=== PATIENT | male | born 1985 ===

== ENCOUNTER 2020-08-09 20:25 | Emergency (ER) | payer BC, OTHER ==
--- NOTE | 2020-08-09 20:53 | EDM.PDOC ---
ED HPI GENERAL MEDICAL PROBLEM - General Chief Complaint: Respiratory Problem Stated Complaint: TROUBLE BREATHING, UNABLE TO SWALLOW Time Seen by Provider: 08/09/20 20:33 Source of Information: Reports: Patient History Limitations: Reports: No Limitations - History of Present Illness INITIAL COMMENTS - FREE TEXT/NARRATIVE: 34M no PMHx presents w/ difficulty swallowing after a choking episode. Patient notes that a few days ago he had really bad GERD/heart burn which is unusual for him. [place] better the last few days. Brianna was eating hibachi noodles and beef when he had a choking episode followed by vomiting. Afterwards was unable to tolerate PO liquids without spitting up "stomach acid". Just [employer] SUPERVIS[employer] patient felt great relief of symptoms and currently feels ok, states he wouldn't have come if he had felt this way at home. No h/o similar, never had endoscopy, no known FHx of esophageal motility or structural disorders. - Related Data Allergies Allergy/AdvReac Type Severity Reaction Status Date / Time No Known Allergies Allergy Verified 08/09/20 20:27 Home Meds: Home Meds Ibuprofen 800 mg PO ASDIRECTED 08/09/20 [History] Past Medical History HEENT History: Reports: None Cardiovascular History: Reports: None Respiratory History: Reports: None Genitourinary History: Reports: None Musculoskeletal History: Reports: None Neurological History: Reports: None Psychiatric History: Reports: None Endocrine/Metabolic History: Reports: None Hematologic History: Reports: None Immunologic History: Reports: None Oncologic (Cancer) History: Reports: None Dermatologic History: Reports: None - Infectious Disease History Infectious Disease History: Reports: Chicken Pox - Past Surgical History Head Surgeries/Procedures: Reports: None GI Surgical History: Reports: Appendectomy Social & Family History - Family History Family Medical History: Noncontributory - Tobacco Use Smoking Status *Q: Former Smoker Used Tobacco, but Quit: Yes Month/Year Tobacco Last Used: 11/11 - Recreational Drug Use Recreational Drug Use: No ED ROS GENERAL - Review of Systems Review Of Systems: Comprehensive ROS is negative, except as noted in HPI. ED EXAM, GENERAL - Physical Exam Exam: See Below Exam Limited By: No Limitations General Appearance: Alert, WD/WN, No Apparent Distress Ears: Normal External Exam Nose: Normal Inspection Throat/Mouth: Normal Inspection, Normal Voice, No Airway Compromise Head: Atraumatic, Normocephalic Neck: Normal Inspection Respiratory/Chest: No Respiratory Distress, Lungs Clear, Normal Breath Sounds, No Accessory Muscle Use Cardiovascular: Normal Peripheral Pulses, Regular Rate, Rhythm GI/Abdominal: Soft, Non-Tender Extremities: Normal Inspection Neurological: Alert Psychiatric: Normal Affect, Normal Mood Skin Exam: Warm, Dry, Intact, Normal Color, No Rash Course - Vital Signs Last Recorded V/S: Last Vital Signs Temp 96.9 F 08/09/20 20:28 Pulse 75 08/09/20 20:28 Resp 20 08/09/20 20:28 BP 150/103 H 08/09/20 20:28 Pulse Ox 95 08/09/20 20:28 - Re-Assessments/Exams Free Text/Narrative Re-Assessment/Exam: 08/09/20 20:52 Will give carbonated beverage and reassess; if patient develops symptoms again, will get labs and trial medications. 08/09/20 21:28 Patient tolerates PO, perhaps had a food bolus that passed on its own. Will d/c with GI/gen surg f/u for endoscopy for further workup Departure - Departure Time of Disposition: 21:26 Disposition: Home, Self-Care 01 Condition: Good Clinical Impression: Esophageal abnormality - Discharge Information Instructions: Upper Endoscopy, Adult Referrals: PCP,None [Primary Care Provider] - Forms: ED Department Discharge Additional Instructions: The following information is given to patients seen in the emergency department who are being discharged to home. This information is to outline your options for follow-up care. We provide all patients seen in our emergency department with a follow-up referral. The need for follow-up, as well as the timing and circumstances, are variable depending upon the specifics of your emergency department visit. If you don't have a primary care physician on staff, we will provide you with a referral. We always advise you to contact your personal physician following an emergency department visit to inform them of the circumstance of the visit and for follow-up with them and/or the need for any referrals to a consulting specialist. The emergency department will also refer you to a specialist when appropriate. This referral assures that you have the opportunity for follow-up care with a specialist. All of these measure are taken in an effort to provide you with optimal care, which includes your follow-up. Under all circumstances we always encourage you to contact your private physician who remains a resource for coordinating your care. When calling for follow-up care, please make the office aware that this follow-up is from your recent emergency room visit. If for any reason you are refused follow-up, please contact the [facility] Department at and asked to speak to the emergency department charge nurse. Please follow up with your primary care physician. If you do not have a primary care physician, see below: [facility] [address] [place] [id number] [facility] [address] [place] [address] You should follow up with a GI physician or surgeon to get an endoscopy; this will help figure out exactly what is going on: [facility] [address] [place] [address], [address] [place] [address] [address] Sepsis Event Note (ED) - Evaluation Sepsis Screening Result: No Definite Risk - Focused Exam Vital Signs: Vital Signs Temp Pulse Resp BP Pulse Ox 08/09/20 20:28 96.9 F 75 20 150/103 H 95
== END 2020-08-09 21:45 | disposition home or self-care (01) ==
LOC: MW.ED 20:25
DX: T18.128A Food in esophagus causing other injury, initial encounter (principal); Z87.891 Personal history of nicotine dependence
CPT/HCPCS: 99282; 99283

== ENCOUNTER 2020-08-16 08:24 | Day surgery (SDC) | payer BC ==
[~2020-08-16 08:24] MED LIST: Ketamine 500 mg/10 ML MDV ONE; Lactated Ringers 1,000 ML IV SCH; Lidocaine 2% 5 ML SDV ONE; Midazolam 1 MG/ML 2 ML SDV ONE; Propofol 200 MG/20 ML SDV ONE; fentaNYL 100 MCG/2 ML SDV ONE
--- NOTE | 2020-08-16 09:31 | PCM.PREANE ---
Preanesthetic Assessment - Anesthesia/Transfusion/Family Hx Anesthesia History: Prior Anesthesia Without Reaction Family History of Anesthesia Reaction: No Transfusion History: No Prior Transfusion(s) - Review of Systems General: No Symptoms Pulmonary: No Symptoms Cardiovascular: No Symptoms Neurological: No Symptoms Other: Reports: None - Physical Assessment NPO Status Date: 08/15/20 Height: 5 ft 11 in Weight: 115.212 kg ASA Class: 2 Mental Status: Alert & Oriented x3 Airway Class: Mallampati = 2 Dentition: Reports: Normal Dentition ROM/Head Extension: Full Lungs: Clear to Auscultation, Normal Respiratory Effort Cardiovascular: Regular Rate, Regular Rhythm - Allergies Allergies/Adverse Reactions: Allergies Allergy/AdvReac Type Severity Reaction Status Date / Time No Known Allergies Allergy Verified 08/10/20 14:18 - Blood Blood Available: No - Anesthesia Plan Pre-Op Medication Ordered: None - Acknowledgements Anesthesia Type Planned: General Anesthesia (tiva) Pt an Appropriate Candidate for the Planned Anesthesia: Yes Alternatives and Risks of Anesthesia Discussed w Pt/Guardian: Yes Pt/Guardian Understands and Agrees with Anesthesia Plan: Yes PreAnesthesia Questionnaire HEENT History: Reports: None Cardiovascular History: Reports: None Respiratory History: Reports: None Gastrointestinal History: Reports: GERD, Other (See Below) Other Gastrointestinal History: current dysphagia Genitourinary History: Reports: None Musculoskeletal History: Reports: None Neurological History: Reports: Migraines Psychiatric History: Reports: None Endocrine/Metabolic History: Reports: Obesity/BMI 30+ Hematologic History: Reports: None Immunologic History: Reports: None Oncologic (Cancer) History: Reports: None Dermatologic History: Reports: None Other Dermatologic History: thinks he may have eczema- not diagnosed - Infectious Disease History Infectious Disease History: Reports: Chicken Pox - Past Surgical History Head Surgeries/Procedures: Reports: None GI Surgical History: Reports: Appendectomy Male Surgical History: Reports: Vasectomy - SUBSTANCE USE Smoking Status *Q: Former Smoker Tobacco Use Within Last Twelve Months: Cigarettes Recreational Drug Use History: No - HOME MEDS Home Medications: Home Meds Ibuprofen 800 mg PO ASDIRECTED 08/09/20 [History] - CURRENT (IN HOUSE) MEDS Current Meds: Current Medications Lactated Ringer's (Ringers, Lactated) 1,000 mls @ 125 mls/hr IV ASDIRECTED [facility] Last Admin: 08/16/20 08:55 Dose: 125 mls/hr Documented by: Discontinued Medications Fentanyl (Sublimaze) Confirm Administered Dose 100 mcg .ROUTE .STK-MED ONE Stop: 08/16/20 07:31 Ketamine HCl (Ketalar) Confirm Administered Dose 500 mg .ROUTE .STK-MED ONE Stop: 08/16/20 07:32 Lidocaine (Xylocaine-Mpf 2%) Confirm Administered Dose 5 ml .ROUTE .STK-MED ONE Stop: 08/16/20 07:31 Midazolam HCl (Versed 1 Mg/Ml) Confirm Administered Dose 2 mg .ROUTE .STK-MED ONE Stop: 08/16/20 07:31 Propofol (Diprivan 20 Ml) Confirm Administered Dose 200 mg .ROUTE .STK-MED ONE Stop: 08/16/20 08:10
--- NOTE | 2020-08-16 11:04 | PCM.POSTAN ---
POST ANESTHESIA ASSESSMENT - MENTAL STATUS Mental Status: Alert, Oriented - VITAL SIGNS Vital Signs: Last Vital Signs Temp 97.2 F 08/16/20 10:47 Pulse 76 08/16/20 10:58 Resp 14 08/16/20 10:58 BP 113/69 08/16/20 10:58 Pulse Ox 96 08/16/20 10:58 - RESPIRATORY Respiratory Status: Respiratory Rate WNL, Airway Patent, O2 Saturation Stable - CARDIOVASCULAR CV Status: Pulse Rate WNL, Blood Pressure Stable - GASTROINTESTINAL GI Status: No Symptoms - POST OP HYDRATION Hydration Status: Adequate & Stable
--- NOTE | 2020-08-16 11:05 | PCM48HPAN ---
Post Anesthesia Note - EVALUATION WITHIN 48HRS OF ANESTHETIC Vital Signs in Normal Range: Yes Patient Participated in Evaluation: Yes Respiratory Function Stable: Yes Airway Patent: Yes Cardiovascular Function Stable: Yes Hydration Status Stable: Yes Pain Control Satisfactory: Yes Nausea and Vomiting Control Satisfactory: Yes Mental Status Recovered: Yes Vital Signs: Last Vital Signs Temp 97.2 F 08/16/20 10:47 Pulse 76 08/16/20 10:58 Resp 14 08/16/20 10:58 BP 113/69 08/16/20 10:58 Pulse Ox 96 08/16/20 10:58
--- NOTE | 2020-08-16 11:24 | PCM.OPNOTE ---
- General Post-Op/Procedure Note Date of Surgery/Procedure: 08/16/20 Operative Procedure(s): egd w bx Findings: see [id number] Pre Op Diagnosis: dysphagia Post-Op Diagnosis: Same Primary Surgeon: Derek Alexander Pathology: egd bx Complications: None Condition: Good Free Text/Narrative:: Intake & Output 08/15/20 08/16/20 08/16/20 22:59 06:59 14:59 Intake Total 900 Balance 900 pt on motrin for back pain; start on omeprazole 40 mg X 2 wks then 20 mg X 4 wks w one refill, and motrin needs to be taken on full stomach
--- NOTE | 2020-08-16 14:16 | OR ---
SURGEON: Derek Alexander MD DATE OF PROCEDURE: 08/16/2020 PREOPERATIVE DIAGNOSIS: Dysphagia. POSTOPERATIVE DIAGNOSIS: Esophagitis. PROCEDURE PERFORMED: Esophagogastroduodenoscopy with biopsy. DESCRIPTION OF PROCEDURE: EGD: The patient was taken to the endoscopy room, and with the SHOW DESIGN SUPERVISOR, Diprivan was administered. A well-lubricated EGD scope was gently inserted through the oropharynx, down the esophagus, passing through the gastroesophageal junction, into the stomach. The mucosa was examined upon the passage. Any etiology will be noted. Once in the stomach, we continued to advance to the distal antrum, passed through the pylorus into the second portion of the duodenum. Again, the mucosa was examined for any abnormality and etiology. The scope was then retrieved back to the stomach and then retroflexed to look at the fundus of the stomach. If a biopsy was indicated, we will biopsy the antrum, body, and gastroesophageal junction. The air will be sucked out while the scope is retrieved to reduce the patient's discomfort. The patient tolerated the procedure well. There were no intraoperative complications. Dr. Alexander was present through the whole procedure. Prior to surgery, a time-out had been called, the patient identified, procedure identified and antibiotic administered. FINDINGS: 1. The patient is easily sedated with SHOW DESIGN SUPERVISOR and Diprivan, the patient is soundly snoring. 2. Oropharynx and proximal esophagus are free of disease. No stricture, inflammation, ulceration, or varicosity. Distal esophagus at GE junction at 40 shows a marked flame-like salmon-colored change and in some area almost like a forming ulcer, consistent with esophagitis, probably in a healing direction. No tess ulcer observed and no blood observed. Consistent with esophagitis at GE junction at 40. Stomach rugae are normal in appearance. Antrum looks normal. Duodenum looks normal. Retroflexed look at the fundus of the stomach, there is no hiatal hernia. Biopsy done at antrum, body, GE junction at 40 and sucked out the gas while scope pulling out. During the whole study, there is no food particle or bile observed. The patient will be prescribed 40 mg omeprazole for 2 weeks and follow with 20 mg omeprazole for another 4 weeks with one refill. Follow up in my office. We discussed about acid reflux. RAMON / CASSIDY /[id number]
== END 2020-08-16 11:32 | disposition home or self-care (01) ==
LOC: MW.SDS 08:24
PROVIDERS: ATTEND Surgery
DX: K29.50 Unspecified chronic gastritis without bleeding (principal); K21.0 Gastro-esophageal reflux disease with esophagitis; E66.9 Obesity, unspecified; K22.10 Ulcer of esophagus without bleeding; Z87.891 Personal history of nicotine dependence; Z68.35 Body mass index [BMI] 35.0-35.9, adult
CPT/HCPCS: 43239; J2001; J2250; J2704; J3010; J7120; 00731; 88305; 88312